=== PATIENT | male | born 1950 | race Caucasian/White ===

== ENCOUNTER 2021-08-04 09:37 | Outpatient (RCR) | payer MEDICARE, OTHER | END 2021-08-26 | disposition home or self-care (01) | LOC: ONC 09:37 | PROVIDERS: ATTEND Radiology Radiation Oncology | DX: C61 Malignant neoplasm of prostate (principal); I10 Essential (primary) hypertension; E78.00 Pure hypercholesterolemia, unspecified | CPT/HCPCS: 76873; G0463; 99204 ==

== ENCOUNTER 2021-08-27 06:01 | Outpatient (CLI) | payer MEDICARE ==
[~2021-08-27] VITALS: Ht 177.8 cm; Wt 87.7 kg
[2021-08-28] MEDS ORDERED: CHOLECALCIFEROL (12:37)
[2021-08-28] MEDS ORDERED: ALBU18HF2 INH (12:37)
[2021-08-28] MEDS ORDERED: ASPI-999 PO (12:37)
[2021-08-28] MEDS ORDERED: OMG1KC PO (12:37)
[2021-08-28] MEDS ORDERED: TMSL.4C PO (12:37)
[2021-08-28] MEDS ORDERED: CARV12.53 PO (12:37)
== END 2021-08-28 13:07 | disposition home or self-care (01) ==
LOC: PREOP 06:01
PROVIDERS: ATTEND Radiology Radiation Oncology
DX: Z01.818 Encounter for other preprocedural examination (principal)

== ENCOUNTER 2021-09-03 09:24 | Outpatient (RCR) | payer MEDICARE ==
[~2021-09-03 09:24] MED LIST: ALBU18HF2 INH; ASPI-999 PO; CARV12.53 PO; CHOLECALCIFEROL; OMG1KC PO; TMSL.4C PO
[2021-09-03] MEDS ORDERED: CIPR-226 PO (11:29)
[2021-09-03] MEDS ORDERED: ACET-11 PO (11:29)
== END 2021-09-25 | disposition home or self-care (01) ==
LOC: ONC 09:24
PROVIDERS: ATTEND Radiology Radiation Oncology
DX: C61 Malignant neoplasm of prostate (principal); I10 Essential (primary) hypertension; E78.00 Pure hypercholesterolemia, unspecified

== ENCOUNTER 2021-09-03 10:20 | Day surgery (SDC) | payer MEDICARE ==
[2021-09-03] VITALS (12 sets, daily range): BP systolic 120–165; BP diastolic 69–99
[~2021-09-03] VITALS: Ht 177.8 cm; Wt 87.7 kg
[2021-09-03] MEDS ORDERED: LACTATED RINGERS 1,000 ML IV PRN (10:30)
[2021-09-03] MEDS ORDERED: proPOfol 200 MG/20 ML (DIPRIVAN) VIAL IV ONE (10:40)
[2021-09-03] MEDS ORDERED: ONDANSETRON 4 MG/2 ML (SDV) Z0FRAN ONE (10:40)
[2021-09-03] MEDS ORDERED: LIDOCAINE PF 2% 5 ML (XYLOCAINE) VIAL ONE (10:40)
[2021-09-03] MEDS ORDERED: fentaNYL INJ 100 MCG/2 ML AMP ONE (10:41)
--- NOTE | 2021-09-03 11:26 | Progress Note-Pre Operative ---
Pre-Operative Progress Note H&P Reviewed The H&P was reviewed, patient examined and no changes noted. Date Seen by Provider: Sep 03, 2021 Time Seen by Provider: 11:15 Date H&P Reviewed: Sep 03, 2021 Time H&P Reviewed: 11:15 Pre-Operative Diagnosis: Prostate cancer cT2a, PSA 7.4, [place] 7 (4+3) with PNI VAUGHN SALVADOR MD Sep 03, 2021 11:26
[2021-09-03] MEDS ORDERED: ACET-11 PO (11:29)
[2021-09-03] MEDS ORDERED: CIPR-226 PO (11:29)
--- NOTE | 2021-09-03 11:32 | Discharge Inst-Simple/Standard ---
Discharge Inst-Standard Reconcile Patient Problems Problems Reviewed?: Yes Discharge Medications New, Converted or Re-Newed RX: Other (scripts called into [facility] on 09/02/21) Patient Instructions/Follow Up Plan of Care/Instructions/FU: 1) post implant scan at [facility] cancer center 09/30/21 at 10:30 a.m. 2) one month post implant follow up with Dr. [place] 09/30/21 at 1:30 p.m. Activity as Tolerated: Yes Discharge Diet: No Restrictions Other Inst to Patient Please instruct patient on jackson catheter care and removal on Wednesday09/08/21. VAUGHN SALVADOR MD Sep 03, 2021 11:31
[2021-09-03] MEDS ORDERED: ROCURONIUM 50 MG/5 ML (ZEMURON) VIAL IV ONE (12:19)
[2021-09-03] MEDS ORDERED: BACITRACIN OINTMENT 28 GM TUBE ONE (12:21)
[2021-09-03] MEDS ORDERED: SEVOFLURANE (ULTANE) 15 ML INHAL SOLN ONE (12:27)
[2021-09-03] MEDS ORDERED: MEPERIDINE (DEMEROL) INJ 50 MG/ML IVP ONE (12:45)
[2021-09-03] MEDS ORDERED: ONDANSETRON 4 MG/2 ML (SDV) Z0FRAN IVP PRN (12:45)
[2021-09-03] MEDS ORDERED: PROMETHAZINE INJ 25 MG/ML (PHENERGAN) AMP IVP ONE (12:45)
[2021-09-03] MEDS ORDERED: morphine INJ 10 MG/ML 1ML (SYR OR VIAL) IVP ONE (12:45)
--- NOTE | 2021-09-03 12:46 | Progress Note-Post Operative ---
Post-Operative Progess Note Surgeon (s)/Roller Picker (s) Surgeon VAUGHN SALVADOR MD Roller Picker: Efe LIVE MD Pre-Operative Diagnosis Prostate cancer cT2a, PSA 7.4, [place] 7 (4+3) with PNI Post-Operative Diagnosis Same as pre-op Procedure & Operative Findings Date of Procedure 09/03/21 Procedure Performed/Findings (1) 67% attenuated Cesium 131 permanent prostate seed implant (2) Injection of biodegradable hydrogel prostate-rectal spacer utilizing the i2we Maryam system (3) Cystogram prostate volume 42.5 cc Anesthesia Type General Estimated Blood Loss Estimated blood loss (mL): Minimal Specimens/Packing Specimens Removed None Packing: None VAUGHN SALVADOR MD Sep 03, 2021 12:46
--- NOTE | 2021-09-03 13:16 | Diagnostic Imaging Report ---
INDICATION: Fluoroscopy during prostate brachytherapy. Fluoroscopy was provided during prostate brachytherapy. 7 seconds of fluoroscopic time was utilized. A single image was obtained demonstrating radiation seed implants within the prostate gland. There is contrast within the urinary bladder. IMPRESSION: Fluoroscopy during brachytherapy. Dictated by: Dictated on workstation # [id number]
--- NOTE | 2021-09-03 13:35 | Anesthesia-General Post-Op ---
General Patient Condition Mental Status/LOC: Same as Preop Cardiovascular: Satisfactory Nausea/Vomiting: Absent Respiratory: Satisfactory Pain: Controlled Complications: Absent Post Op Complications Complications None Follow Up Care/Instructions Patient Instructions None needed. Anesthesia/Patient Condition Patient Condition Patient is doing well, no complaints, stable vital signs, no apparent adverse anesthesia problems. No complications reported per nursing. JAY HERNANDEZ CRNA Sep 03, 2021 13:35
== END 2021-09-03 14:55 ==
LOC: SDC 10:20
PROVIDERS: ATTEND Radiology Radiation Oncology
DX: C61 Malignant neoplasm of prostate (principal); F17.290 Nicotine dependence, other tobacco product, uncomplicated
CPT/HCPCS: 55874; 55876; 76000; 76965; 77290; 77318; 77332; 77370; 77470; 77778; 87081; C1715 ×2; C1889; C2643

== ENCOUNTER 2021-10-14 09:43 | Outpatient (RCR) | payer MEDICARE ==
[~2021-10-14 09:43] MED LIST changes: +ACET-11 PO; +CIPR-226 PO
== END 2021-10-26 | disposition home or self-care (01) ==
LOC: ONC 09:43
PROVIDERS: ATTEND Radiology Radiation Oncology
DX: C61 Malignant neoplasm of prostate (principal)
CPT/HCPCS: 77290

== ENCOUNTER 2021-11-21 08:39 | Outpatient (RCR) | payer MEDICARE | END 2021-11-26 | disposition home or self-care (01) | LOC: ONC 08:39 | PROVIDERS: ATTEND Radiology Radiation Oncology | DX: Z51.0 Encounter for antineoplastic radiation therapy (principal); C61 Malignant neoplasm of prostate; J43.9 Emphysema, unspecified; E78.00 Pure hypercholesterolemia, unspecified; I10 Essential (primary) hypertension | CPT/HCPCS: 36415; 77295; 77300; 77301; 77334; 77336; 77338; 77385; 77470; 84153 ==

== ENCOUNTER 2022-01-15 09:46 | Outpatient (RCR) | payer MEDICARE | END 2022-01-26 | disposition home or self-care (01) | LOC: ONC 09:46 | PROVIDERS: ATTEND Radiology Radiation Oncology | DX: C61 Malignant neoplasm of prostate (principal); J43.9 Emphysema, unspecified; E78.00 Pure hypercholesterolemia, unspecified; I10 Essential (primary) hypertension; Z12.5 Encounter for screening for malignant neoplasm of prostate | CPT/HCPCS: G0103; G0463; 36415; 84153; 99213 ==